=== PATIENT | male | born 1955 | race Caucasian/White ===

== ENCOUNTER 2020-03-26 21:37 | Emergency (ER) | payer BC ==
--- NOTE | 2020-03-26 21:57 | EDM.PDOC ---
ED HPI GENERAL MEDICAL PROBLEM - General Chief Complaint: Fever Stated Complaint: FEVER,POSSIBLE COVID EXPOSURE Time Seen by Provider: 03/26/20 21:42 - History of Present Illness INITIAL COMMENTS - FREE TEXT/NARRATIVE: HISTORY AND PHYSICAL: History of present illness: This is a healthy 65-year-old gentleman with a history significant for coronary disease(status post stent), hypertension, denies diabetes, liver, lung, kidney p erin, presents the ER today secondary to fever earlier this evening to 100.3. Patient reports that he took Tylenol today. 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 Patient reports that he has utilized masks and appropriate PPE but is concerned regarding catching coronavirus. Patient denies any symptomatology. Patient denies any nausea, vomiting, diarrhea, dysuria, frequency, urgency, URI symptoms, rhinorrhea, cough, sore throat, ear pain, abdominal pain, rash, myalgias, weakness. Patient reports he has been tolerating p.o. solids and liquids well. Patient has a chest pain or shortness of breath. Review of systems: As per history of present illness and below otherwise all systems reviewed and negative. Past medical history: As per history of present illness and as reviewed below otherwise noncontributory. Surgical history: As per history of present illness and as reviewed below otherwise noncontributory. Social history: No reported history of drug or alcohol abuse. Family history: As per history of present illness and as reviewed below otherwise noncontributory. Physical exam: Constitutional: Patient is oriented to person, place, and time. Appears well- developed and well-nourished. No distress. HEENT: Moist mucous membranes Head: Normocephalic and atraumatic Eyes: Right eye exhibits no discharge. Left eye exhibits no discharge. No scleral icterus Neck: Normal range of motion. No tracheal deviation present. Cardiovascular: Normal rate and regular rhythm. Pulmonary: Effort normal, no respiratory distress. Abdominal: No distention Musculoskeletal: Normal range of motion Neurologic: Alert and oriented to person, place and time. Skin: [place], warm and dry. Psychiatric: Normal mood and affect. Behavior is normal. Judgment and thought content normal. Nursing note and vital signs have been reviewed TMs clear, oropharynx without erythema or exudates, no lymphadenopathy, lungs clear. Diagnostics: Coronavirus test: Positive Assessment and plan: This is a 65-year-old gentleman who presents to the ER today secondary to concern regarding coronavirus. Patient did have a fever earlier today and has been exposed to clients who were positive for farias virus. Although patient has donned appropriate PPE, he is concerned that he might have contracted coronavirus. Patient is otherwise asymptomatic except for the fever. Patient's coronavirus test is positive here in the ED. Patient currently is asymptomatic other than the fever. Patient's pulse ox is 97% on room air. Patient has been given information regarding need to return the ED if any shortness of breath or any new concerns. Patient has been instructed to self isolate for 2 weeks and should not return back to work until cleared by his family physician. Patient does live with his 12-year-old son however he reports he will be able to wear a mask and isolate from his son at home as best he can. He reports no one else would be able to care for his son. All questions to patient has been answered and he feels comfortable with the current plan. Reassessment at the time of disposition demonstrates that the patient is in no acute distress. The patient has remained stable throughout the entire ED visit and is without objective evidence for acute process requiring urgent intervention or hospitalization. The patient is stable for discharge, counseling is provided as documented above, discussed symptomatic treatment and specific conditions for return. I have spoken with the patient/caregive and discussed todays findings, in addition to providing specific details for the plan of care. Questions are answered and there is agreement with the plan. Definitive disposition and diagnosis as appropriate pending reevaluation and review of above. - Related Data Allergies Allergy/AdvReac Type Severity Reaction Status Date / Time No Known Allergies Allergy Verified 03/26/20 21:42 Home Meds: Home Meds Metoprolol Succinate 25 mg PO BID 02/11/14 [History] Rosuvastatin [Crestor] 5 mg PO DAILY 02/11/14 [History] Lisinopril [Zestril] 10 mg PO DAILY 05/13/14 [History] Non-Formulary Medication [NF Drug] 03/26/20 [History] Past Medical History Cardiovascular History: Reports: High Cholesterol, Hypertension - Infectious Disease History Infectious Disease History: Reports: Chicken Pox, Mumps - Past Surgical History Other Cardiovascular Surgeries/Procedures: 2 stent Social & Family History - Family History Family Medical History: Noncontributory - Caffeine Use Caffeine Use: Reports: None - Recreational Drug Use Recreational Drug Use: No ED ROS GENERAL - Review of Systems Review Of Systems: Comprehensive ROS is negative, except as noted in HPI. ED EXAM, GENERAL - Physical Exam Exam: See Below Course - Vital Signs Last Recorded V/S: Last Vital Signs Temp 97.5 F 03/26/20 21:45 Pulse 66 03/26/20 21:45 Resp 18 03/26/20 21:45 BP 138/95 H 03/26/20 21:45 Pulse Ox 97 03/26/20 21:45 - Orders/Labs/Meds Labs: Laboratory Tests 03/26/20 Range/Units 22:00 COVID-19 (PHU) POSITIVE H (NEGATIVE) Departure - Departure Time of Disposition: 22:41 Disposition: Home, Self-Care 01 Condition: Good Clinical Impression: Coronavirus infection, COVID-19 virus detected - Discharge Information Instructions: COVID-19, COVID-19: How to Protect Yourself and Others - [facility] Referrals: Harlan Arriaza MD [Primary Care Provider] - Forms: ED Department Discharge Additional Instructions: Your coronavirus test today came back positive in the emergency department. You will need to self isolate for the next 2 weeks. You should not return back to work until you are cleared by your family physician. Please return to the ER if you start experiencing any shortness of breath or any new or concerning symptoms. The following information is given to patients seen in the emergency department who are being discharged to home. This information is to outline your options for follow-up care. We provide all patients seen in our emergency department with a follow-up referral. The need for follow-up, as well as the timing and circumstances, are variable depending upon the specifics of your emergency department visit. If you don't have a primary care physician on staff, we will provide you with a referral. We always advise you to contact your personal physician following an emergency department visit to inform them of the circumstance of the visit and for follow-up with them and/or the need for any referrals to a consulting specialist. The emergency department will also refer you to a specialist when appropriate. This referral assures that you have the opportunity for follow-up care with a specialist. All of these measure are taken in an effort to provide you with optimal care, which includes your follow-up. Under all circumstances we always encourage you to contact your private physician who remains a resource for coordinating your care. When calling for follow-up care, please make the office aware that this follow-up is from your recent emergency room visit. If for any reason you are refused follow-up, please contact the [facility] Emergency Department at and asked to speak to the emergency department charge nurse. Sepsis Event Note (ED) - Evaluation Sepsis Screening Result: No Definite Risk - Focused Exam Vital Signs: Vital Signs Temp Pulse Resp BP Pulse Ox 03/26/20 21:45 97.5 F 66 18 138/95 H 97
[2020-03-26 22:57] VITALS: BP 128/83; PULSE 62
== END 2020-03-26 22:54 | disposition home or self-care (01) ==
LOC: MW.ED 21:37
DX: U07.1 COVID-19 (principal); I10 Essential (primary) hypertension; E78.00 Pure hypercholesterolemia, unspecified; Z95.5 Presence of coronary angioplasty implant and graft; Z79.899 Other long term (current) drug therapy
CPT/HCPCS: 99283; U0002

== ENCOUNTER 2021-03-19 03:52 | Emergency (ER) | payer BC ==
[2021-03-19 04:28] LABS: BLOOD UREA NITROGEN,BUN 9 mg/dL (7.0-18.0); CARBON DIOXIDE,CO2 28.5 mmol/L (21.0-32.0); CHLORIDE,CL 103 mmol/L (98-107); GLUCOSE RANDOM 118 mg/dL (74-106); LIPASE 129 U/L (73-393); POTASSIUM,K 3.6 mmol/L (3.5-5.1); SODIUM,NA 141 mmol/L (136-148)
--- NOTE | 2021-03-19 04:30 | EDM.PDOC ---
<Manish Kwon - Last Filed: 03/19/21 04:28> ED HPI GENERAL MEDICAL PROBLEM - General Chief Complaint: Chest Pain Stated Complaint: CHEST PAIN Time Seen by Provider: 03/19/21 04:28 Source of Information: Reports: Patient History Limitations: Reports: No Limitations - History of Present Illness INITIAL COMMENTS - FREE TEXT/NARRATIVE: Patient is a 66-year-old male with past medical history of MIs has 2 stents presents today for chest pain. States that he woke up from sleep with some substernal chest pain radiating to both shoulders. Took aspirin before arriving. States it has made the pain better or worse. Denies any shortness of breath fever chills. Denies any other complaints. bilateral chest and shoulders Pain Score (Numeric/FACES): 6 - Related Data Allergies Allergy/AdvReac Type Severity Reaction Status Date / Time No Known Allergies Allergy Verified 03/19/21 04:11 Home Meds: Home Meds Metoprolol Succinate 25 mg PO BID 02/11/14 [History] Rosuvastatin [Crestor] 5 mg PO DAILY 02/11/14 [History] Lisinopril [Zestril] 10 mg PO DAILY 05/13/14 [History] Non-Formulary Medication [NF Drug] 03/26/20 [History] Past Medical History HEENT History: Reports: None Cardiovascular History: Reports: High Cholesterol, Hypertension, MT Respiratory History: Reports: None Gastrointestinal History: Reports: None Genitourinary History: Reports: None Musculoskeletal History: Reports: None Neurological History: Reports: None Psychiatric History: Reports: None Endocrine/Metabolic History: Reports: None Hematologic History: Reports: None Immunologic History: Reports: None Oncologic (Cancer) History: Reports: None Dermatologic History: Reports: None - Infectious Disease History Infectious Disease History: Reports: Chicken Pox, Mumps - Past Surgical History Head Surgeries/Procedures: Reports: None Other Cardiovascular Surgeries/Procedures: 2 stent Social & Family History - Family History Family Medical History: No Pertinent Family History - Tobacco Use Tobacco Use Status *Q: Never Tobacco User Second Hand Smoke Exposure: No - Caffeine Use Caffeine Use: Reports: None - Recreational Drug Use Recreational Drug Use: No ED ROS GENERAL - Review of Systems Review Of Systems: See Below Constitutional: Reports: No Symptoms HEENT: Reports: No Symptoms Respiratory: Reports: No Symptoms Cardiovascular: Reports: Chest Pain Endocrine: Reports: No Symptoms GI/Abdominal: Reports: No Symptoms : Reports: No Symptoms Musculoskeletal: Reports: No Symptoms Skin: Reports: No Symptoms Neurological: Reports: No Symptoms Psychiatric: Reports: No Symptoms Hematologic/Lymphatic: Reports: No Symptoms Immunologic: Reports: No Symptoms ED EXAM, GENERAL - Physical Exam Exam: See Below Exam Limited By: No Limitations General Appearance: Alert, WD/WN, No Apparent Distress Eye Exam: Bilateral Eye: EOMI, PERRL Respiratory/Chest: No Respiratory Distress, Lungs Clear, Normal Breath Sounds Cardiovascular: Normal Peripheral Pulses, Regular Rate, Rhythm GI/Abdominal: Normal Bowel Sounds, Soft, Non-Tender Back Exam: Normal Inspection Extremities: Normal Inspection, Normal Range of Motion Neurological: Alert, Oriented, Normal Cognition, Normal Gait #1 Interpretation EKG Date: 03/19/21 Time: 04:00 Rhythm: NSR Rate (Beats/Min): 68 ST-T: Normal Departure - Departure Disposition: Against Medical Advice 07 Clinical Impression: Chest pain in adult Instructions: Nonspecific Chest Pain, Adult, [id number], Angina, [id number] Referrals: Harlan Arriaza MD [Primary Care Provider] - Marian Quintanilla MD [Physician] - Forms: ED Department Discharge Additional Instructions: You were evaluated today on an emergent basis. At this time we do recommend that you stay in the hospital to be observed given your symptoms as this could be a symptom of your heart. At this time you chose to leave AGAINST MEDICAL ADVICE. We do recommend that she come back to the emergency department as soon as possible. As discussed I did recommend you follow-up with cardiology in 1 day however you stated that you were going on vacation. Therefore I want you to follow-up with your primary care doctor in 1 day. Please return to ed if you have any chest pain, shortness of breath, passing out. [facility] - [facility] [address] [place] [id number] [facility] [address] [place] [id number] The patient is informed of any results of their evaluation and diagnostic workup and all questions are answered. They are given discharge instructions and return precautions. The patient is stable for discharge. The patient states they understand and agree with the plan and that they will return if their symptoms get worse or if they have any new concerns. The following information is given to patients seen in the emergency department who are being discharged to home. This information is to outline your options for follow-up care. We provide all patients seen in our emergency department with a follow-up referral. The need for follow-up, as well as the timing and circumstances, are variable depending upon the specifics of your emergency department visit. If you don't have a primary care physician on staff, we will provide you with a referral. We always advise you to contact your personal physician following an emergency department visit to inform them of the circumstance of the visit and for follow-up with them and/or the need for any referrals to a consulting specialist. The emergency department will also refer you to a specialist when appropriate. This referral assures that you have the opportunity for follow-up care with a specialist. All of these measure are taken in an effort to provide you with optimal care, which includes your follow-up. Under all circumstances we always encourage you to contact your private physician who remains a resource for coordinating your care. When calling for follow-up care, please make the office aware that this follow-up is from your recent emergency room visit. If for any reason you are refused follow-up, please contact the [facility] Emergency Department at and asked to speak to the emergency department charge nurse. Sepsis Event Note (ED) - Evaluation Sepsis Screening Result: No Definite Risk - Assessment/Plan Plan: Patient is a 66-year-old male with a history of MT. Patient presents today with substernal chest pain rating to her shoulders. We will obtain EKG labs x-ray and reassess patient. <Tay Malik - Last Filed: 03/20/21 20:59> ED HPI GENERAL MEDICAL PROBLEM - History of Present Illness INITIAL COMMENTS - FREE TEXT/NARRATIVE: Patient was signed out to me by Dr. Kwon pending repeat troponin at 7 AM I did reevaluate the patient and noted that he was feeling well. He states that he is on vacation and does not want to stay in the hospital. I did discuss wit h him at this time that given his risk factors we do recommend he stays in the hospital. At this time we did not have any repeat troponin at this time. He was amenable to waiting for the repeat troponin. Laboratory: Repeat troponin was negative. Again on reevaluation patient alert and oriented x4 and given his repeat troponin is negative the patient does not want to stay in the hospital. Ther efore the patient was signed out AGAINST MEDICAL ADVICE. The patient was apprised of the potential risks of leaving the hospital AGAINST MEDICAL ADVICE. They include serious complications, permanent disability, and . At the time of my interview with the patient, the patient was alert, oriented, and capable. I urged the patient to return to the hospital as soon as possible to complete their evaluation and treatment. DISPOSITION: The patient left AGAINST MEDICAL ADVICE CONDITION: Fair PROCEDURES: None FINAL IMPRESSION(S)/DIAGNOSES: 1. Acute chest pain Tay Malik M.D. Course - Vital Signs Last Recorded V/S: Last Vital Signs Temp 37.3 C 03/19/21 08:00 Pulse 70 03/19/21 06:54 Resp 16 03/19/21 08:00 BP 113/68 03/19/21 08:00 Pulse Ox 94 L 03/19/21 08:00 - Orders/Labs/Meds Labs: Laboratory Tests 03/19/21 03/19/21 03/19/21 Range/Units 03:59 03:59 07:00 WBC 8.22 (4.0-11.0) K/uL RBC 4.92 (4.50-5.90) M/uL Hgb 15.4 (13.0-17.0) g/dL Hct 44.0 (38.0-50.0) % MCV 89.4 (80.0-98.0) fL MCH 31.3 (27.0-32.0) pg MCHC 35.0 (31.0-37.0) g/dL RDW Std Deviation 42.1 (28.0-62.0) fl RDW Coeff of Guillermo 13 (11.0-15.0) % Plt Count 182 (150-400) K/uL MPV 8.90 (7.40-12.00) fL Neut % (Auto) 51.8 (48.0-80.0) % Lymph % (Auto) 35.9 (16.0-40.0) % Dorado % (Auto) 9.9 (0.0-15.0) % Eos % (Auto) 2.2 (0.0-7.0) % Baso % (Auto) 0.2 (0.0-1.5) % Neut # (Auto) 4.3 (1.4-5.7) K/uL Lymph # (Auto) 3.0 H (0.6-2.4) K/uL [place] # (Auto) 0.8 (0.0-0.8) K/uL Eos # (Auto) 0.2 (0.0-0.7) K/uL Baso # (Auto) 0.0 (0.0-0.1) K/uL Nucleated RBC % 0.0 /100WBC Nucleated RBCs # 0 K/uL Sodium 141 (136-148) mmol/L Potassium 3.6 (3.5-5.1) mmol/L Chloride 103 (98-107) mmol/L Carbon Dioxide 28.5 (21.0-32.0) mmol/L BUN 9 (7.0-18.0) mg/dL Creatinine 1.1 (0.8-1.3) mg/dL Est Cr Clr Drug Dosing 74.46 mL/min Estimated GFR (MDRD) > 60.0 ml/min Glucose 118 H (74-106) mg/dL Calcium 8.4 L (8.5-10.1) mg/dL Total Bilirubin 0.6 (0.2-1.0) mg/dL AST 17 (15-37) IU/L ALT 22 (14-63) IU/L Alkaline Phosphatase 76 (46-116) U/L Creatine Kinase 85 (26-308) U/L Troponin I < 0.050 < 0.050 (0.000-0.056) ng/mL Total Protein 7.5 (6.4-8.2) g/dL Albumin 3.8 (3.4-5.0) g/dL Globulin 3.7 (2.6-4.0) g/dL Albumin/Globulin Ratio 1.0 (0.9-1.6) Lipase 129 (73-393) U/L Departure - Departure Time of Disposition: 07:56 Condition: Fair
--- NOTE | 2021-03-19 05:54 | CR ---
INDICATION: Chest pain TECHNIQUE: Portable upright AP view of the chest COMPARISON: AP chest radiograph 04/26/2015 FINDINGS: The lungs are clear. There is no sizable pleural effusion or pneumothorax. The cardiomediastinal silhouette is normal. The visualized osseous structures are unremarkable. IMPRESSION: No acute intrathoracic process. Dictated by Anisha Lao MD @ 03/19/2021 5:52:[address] Anisha Lao @ Mar 19 2021 5:52AM
[2021-03-19 06:54] VITALS: PULSE 70
[2021-03-19 08:07] VITALS: BP 113/68
== END 2021-03-19 08:09 | disposition left against medical advice (07) ==
LOC: MW.ED 03:52
DX: R07.2 Precordial pain (principal); I10 Essential (primary) hypertension; E78.00 Pure hypercholesterolemia, unspecified; I25.2 Old myocardial infarction; Z79.899 Other long term (current) drug therapy
CPT/HCPCS: 36415; 71045; 71045-26; 80053; 82550; 83690; 84484; 85025; 93005; 99285-25

== ENCOUNTER 2021-05-25 19:34 | Emergency (ER) | payer BC ==
[2021-05-25] MEDS ORDERED: Aspirin 81 MG Tab.Chew PO ONE (19:43)
--- NOTE | 2021-05-25 19:45 | EDM.PDOC ---
ED HPI GENERAL MEDICAL PROBLEM - General Chief Complaint: Chest Pain Stated Complaint: CHEST PAIN Time Seen by Provider: 05/25/21 19:38 Source of Information: Reports: Patient History Limitations: Reports: No Limitations - History of Present Illness INITIAL COMMENTS - FREE TEXT/NARRATIVE: 66-year-old male past medical 3 hypertension, CAD with 2 stents last cardiac cath roughly 5 years ago presents for chest pain. Patient is poor historian. He states that roughly 30 minutes prior to arrival he began to experience substernal chest pain initially radiating to his left shoulder and now just in his substernal chest. He states he was at rest when this occurred. He denies any associated shortness of breath or cough. He does note that he had Covid a few months ago. He denies any lower extremity swelling or pain. Left Upper Chest Pain Score (Numeric/FACES): 8 - Related Data Allergies Allergy/AdvReac Type Severity Reaction Status Date / Time No Known Allergies Allergy Verified 03/19/21 04:11 Home Meds: Home Meds Metoprolol Succinate 25 mg PO BID 02/11/14 [History] Rosuvastatin [Crestor] 5 mg PO DAILY 02/11/14 [History] Lisinopril [Zestril] 10 mg PO DAILY 05/13/14 [History] Non-Formulary Medication [NF Drug] 03/26/20 [History] Past Medical History HEENT History: Reports: Impaired Vision Cardiovascular History: Reports: High Cholesterol, Hypertension, [place] Respiratory History: Reports: Other (See Below) Other Respiratory History: covid 2020 Gastrointestinal History: Reports: None Genitourinary History: Reports: None Musculoskeletal History: Reports: None Neurological History: Reports: None Psychiatric History: Reports: None Endocrine/Metabolic History: Reports: None Hematologic History: Reports: None Immunologic History: Reports: None Oncologic (Cancer) History: Reports: None Dermatologic History: Reports: None - Infectious Disease History Infectious Disease History: Reports: Chicken Pox, Mumps - Past Surgical History Head Surgeries/Procedures: Reports: None Cardiovascular Surgical History: Reports: Other (See Below) Other Cardiovascular Surgeries/Procedures: 2 stent Social & Family History - Family History Family Medical History: No Pertinent Family History - Caffeine Use Caffeine Use: Reports: None ED ROS GENERAL - Review of Systems Review Of Systems: Comprehensive ROS is negative, except as noted in HPI. ED EXAM, GENERAL - Physical Exam Exam: See Below Exam Limited By: No Limitations General Appearance: Alert, WD/WN, No Apparent Distress Ears: Hearing Grossly Normal Throat/Mouth: Normal Voice, No Airway Compromise Head: Atraumatic, Normocephalic Respiratory/Chest: No Respiratory Distress, Lungs Clear, Normal Breath Sounds, No Accessory Muscle Use Cardiovascular: Normal Peripheral Pulses, Regular Rate, Rhythm, No Edema Extremities: Normal Inspection Neurological: Alert, Normal Cognition Psychiatric: Normal Affect, Normal Mood Skin Exam: Warm, Dry, Intact, Normal Color #1 Interpretation EKG Date: 05/25/21 Time: 19:37 Rhythm: NSR Rate (Beats/Min): 62 Silver: Normal P-Wave: Present QRS: Normal ST-T: Normal QT: Normal ME/PQ Interval: 220 EKG Interpretation Comments: no acute ischemic changes Course - Vital Signs Last Recorded V/S: Last Vital Signs Temp 98.2 F 05/25/21 19:38 Pulse 63 05/25/21 22:16 Resp 17 05/25/21 22:16 BP 105/62 05/25/21 22:16 Pulse Ox 95 05/25/21 22:16 - Orders/Labs/Meds Orders: Active Orders 24 hr Category Date Time Status Nitroglycerin [Nitrostat] Med 05/25/21 19:43 Active 0.4 mg SL Q5M PRN Saline Lock Insert [OM.PC] Stat Oth 05/25/21 19:43 Ordered Medication Orders Nitroglycerin (Nitroglycerin 0.4 Mg Tab.Sl) 0.4 mg SL Q5M PRN PRN Reason: Chest Pain Last Admin: 05/25/21 20:05 Dose: 0.4 mg Documented by: Admin: 05/25/21 19:56 Dose: 0.4 mg Documented by: [place] Labs: Laboratory Tests 05/25/21 05/25/21 05/25/21 Range/Units 19:45 19:45 19:45 WBC 9.35 (4.0-11.0) K/uL RBC 4.74 (4.50-5.90) M/uL Hgb 14.7 (13.0-17.0) g/dL Hct 42.0 (38.0-50.0) % MCV 88.6 (80.0-98.0) fL MCH 31.0 (27.0-32.0) pg MCHC 35.0 (31.0-37.0) g/dL RDW Std Deviation 43.0 (28.0-62.0) fl RDW Coeff of Guillermo 13 (11.0-15.0) % Plt Count 189 (150-400) K/uL MPV 8.80 (7.40-12.00) fL Neut % (Auto) 54.2 (48.0-80.0) % Lymph % (Auto) 33.6 (16.0-40.0) % [place] % (Auto) 10.4 (0.0-15.0) % Eos % (Auto) 1.6 (0.0-7.0) % Baso % (Auto) 0.2 (0.0-1.5) % Neut # (Auto) 5.1 (1.4-5.7) K/uL Lymph # (Auto) 3.1 H (0.6-2.4) K/uL [place] # (Auto) 1.0 H (0.0-0.8) K/uL Eos # (Auto) 0.2 (0.0-0.7) K/uL Baso # (Auto) 0.0 (0.0-0.1) K/uL Nucleated RBC % 0.0 /100WBC Nucleated RBCs # 0 K/uL Sodium 137 (136-148) mmol/L Potassium 3.7 (3.5-5.1) mmol/L Chloride 100 (98-107) mmol/L Carbon Dioxide 27.2 (21.0-32.0) mmol/L BUN 15 (7.0-18.0) mg/dL Creatinine 1.0 (0.8-1.3) mg/dL Est Cr Clr Drug Dosing TNP Estimated GFR (MDRD) > 60.0 ml/min Glucose 126 H (74-106) mg/dL Calcium 8.2 L (8.5-10.1) mg/dL Magnesium 2.3 (1.8-2.4) mg/dL Total Bilirubin 0.6 (0.2-1.0) mg/dL AST 22 (15-37) IU/L ALT 16 (14-63) IU/L Alkaline Phosphatase 73 (46-116) U/L Troponin I < 0.050 (0.000-0.056) ng/mL B-Natriuretic Peptide 28 (<100) PG/ML Total Protein 7.7 (6.4-8.2) g/dL Albumin 3.7 (3.4-5.0) g/dL Globulin 4.0 (2.6-4.0) g/dL Albumin/Globulin Ratio 0.9 (0.9-1.6) 05/25/21 Range/Units 22:47 WBC (4.0-11.0) K/uL RBC (4.50-5.90) M/uL Hgb (13.0-17.0) g/dL Hct (38.0-50.0) % MCV (80.0-98.0) fL MCH (27.0-32.0) pg MCHC (31.0-37.0) g/dL RDW Std Deviation (28.0-62.0) fl RDW Coeff of Guillermo (11.0-15.0) % Plt Count (150-400) K/uL MPV (7.40-12.00) fL Neut % (Auto) (48.0-80.0) % Lymph % (Auto) (16.0-40.0) % [place] % (Auto) (0.0-15.0) % Eos % (Auto) (0.0-7.0) % Baso % (Auto) (0.0-1.5) % Neut # (Auto) (1.4-5.7) K/uL Lymph # (Auto) (0.6-2.4) K/uL [place] # (Auto) (0.0-0.8) K/uL Eos # (Auto) (0.0-0.7) K/uL Baso # (Auto) (0.0-0.1) K/uL Nucleated RBC % /100WBC Nucleated RBCs # K/uL Sodium (136-148) mmol/L Potassium (3.5-5.1) mmol/L Chloride (98-107) mmol/L Carbon Dioxide (21.0-32.0) mmol/L BUN (7.0-18.0) mg/dL Creatinine (0.8-1.3) mg/dL Est Cr Clr Drug Dosing Estimated GFR (MDRD) ml/min Glucose (74-106) mg/dL Calcium (8.5-10.1) mg/dL Magnesium (1.8-2.4) mg/dL Total Bilirubin (0.2-1.0) mg/dL AST (15-37) IU/L ALT (14-63) IU/L Alkaline Phosphatase (46-116) U/L Troponin I < 0.050 (0.000-0.056) ng/mL B-Natriuretic Peptide (<100) PG/ML Total Protein (6.4-8.2) g/dL Albumin (3.4-5.0) g/dL Globulin (2.6-4.0) g/dL Albumin/Globulin Ratio (0.9-1.6) Meds: Medications Generic Name Dose Route Start Last Admin Trade Name Freq PRN Reason Stop Dose Admin Nitroglycerin 0.4 mg 05/25/21 19:43 05/25/21 20:05 Nitroglycerin 0.4 Mg Tab.Sl SL 0.4 mg Q5M PRN Administration Chest Pain Discontinued Medications Generic Name Dose Route Start Last Admin Trade Name Freq PRN Reason Stop Dose Admin Aspirin 324 mg 05/25/21 19:43 05/25/21 19:56 Aspirin 81 Mg Tab.Chew PO 05/25/21 19:44 324 mg ONETIME ONE Administration Ondansetron HCl 4 mg 05/25/21 20:09 05/25/21 20:12 Ondansetron 4 Mg/2 Ml Sdv IVPUSH 05/25/21 20:10 4 mg ONETIME ONE Administration Ondansetron HCl Confirm 05/25/21 20:10 05/25/21 20:12 Ondansetron 4 Mg/2 Ml Sdv Administered 05/25/21 20:11 Not Given Dose 4 mg .ROUTE .STK-MED ONE - Re-Assessments/Exams Free Text/Narrative Re-Assessment/Exam: 05/25/21 20:35 Patient notes resolution of pain. Will get 3-hour repeat troponin. Told patient that I recommend that he stay in the hospital for observation for cardiac evaluation. He is uncertain if he is willing to stay but he is willing to stay for the 3-hour repeat troponin. 05/25/21 23:39 Patient's repeat troponin is negative. I did offer observation admission and recommend that this. 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 Departure - Departure Time of Disposition: 23:40 Disposition: Home, Self-Care 01 Condition: Good Clinical Impression: Chest pain Qualifiers: Chest pain type: unspecified Qualified Code(s): R07.9 - Chest pain, unspecified - Discharge Information Instructions: Nonspecific Chest Pain, Adult Forms: ED Department Discharge Additional Instructions: Please follow-up with your wallboard worker as soon as you can. If you are for return of chest pain you need to come back to the emergency department immediately. The following information is given to patients seen in the emergency department who are being discharged to home. This information is to outline your options for follow-up care. We provide all patients seen in our emergency department with a follow-up referral. The need for follow-up, as well as the timing and circumstances, are variable depending upon the specifics of your emergency department visit. If you don't have a primary care physician on staff, we will provide you with a referral. We always advise you to contact your personal physician following an emergency department visit to inform them of the circumstance of the visit and for follow-up with them and/or the need for any referrals to a consulting specialist. The emergency department will also refer you to a specialist when appropriate. This referral assures that you have the opportunity for follow-up care with a specialist. All of these measure are taken in an effort to provide you with optimal care, which includes your follow-up. Under all circumstances we always encourage you to contact your private physician who remains a resource for coordinating your care. When calling for follow-up care, please make the office aware that this follow-up is from your recent emergency room visit. If for any reason you are refused follow-up, please contact the Emergency Department at and asked to speak to the emergency department charge nurse. Please follow up with your primary care physician. If you do not have a primary care physician, see below: [facility] [address] [place] [id number] [facility] [address] [place] [id number] [facility] [address] [place] [id number] Sepsis Event Note (ED) - Evaluation Sepsis Screening Result: No Definite Risk - Focused Exam Vital Signs: Vital Signs Temp Pulse Resp BP BP Pulse Ox 05/25/21 22:16 63 17 105/62 95 05/25/21 21:40 68 19 109/67 96 05/25/21 20:07 18 105/62 93 L 05/25/21 20:05 109/67 05/25/21 20:03 89 18 109/67 94 L 05/25/21 19:56 125/75 05/25/21 19:38 98.2 F 67 18 157/82 H 97 - My Orders Last 24 Hours: My Active Orders 05/25/21 19:43 Nitroglycerin [Nitrostat] 0.4 mg SL Q5M PRN Saline Lock Insert [OM.PC] Stat - Assessment/Plan Last 24 Hours: My Active Orders 05/25/21 19:43 Nitroglycerin [Nitrostat] 0.4 mg SL Q5M PRN Saline Lock Insert [OM.PC] Stat
[2021-05-25] MEDS: Nitroglycerin 0.4 MG Tab.SL SL PRN ×2 (19:56→20:05)
[2021-05-25] MEDS ORDERED: Ondansetron 4 MG/2 ML SDV IVPUSH ONE (20:09)
[2021-05-25] MEDS ORDERED: Ondansetron 4 MG/2 ML SDV ONE (20:10)
[2021-05-25 20:17] LABS: BLOOD UREA NITROGEN,BUN 15 mg/dL (7.0-18.0); CARBON DIOXIDE,CO2 27.2 mmol/L (21.0-32.0); CHLORIDE,CL 100 mmol/L (98-107); GLUCOSE RANDOM 126 mg/dL (74-106); POTASSIUM,K 3.7 mmol/L (3.5-5.1); SODIUM,NA 137 mmol/L (136-148)
--- NOTE | 2021-05-25 20:24 | CR ---
INDICATION: Chest pain. COMPARISON: 03/19/2021 FINDINGS: An erect single view of the chest was obtained at 19 48 hours. The lungs remain clear despite shallow inspiration. No focal or diffuse infiltrates are present. The heart remains normal in size. The mediastinum is normal in appearance. The osseous structures are normal in appearance for the patient`s age. IMPRESSION: Shallow inspiration. Otherwise normal chest single view. Dictated by Chris Davison MD @ 05/25/2021 8:23:15 PM (Electronically Signed)
[2021-05-25 23:49] VITALS: BP 117/66; PULSE 60
== END 2021-05-25 23:50 | disposition home or self-care (01) ==
LOC: MW.ED 19:34
DX: R07.2 Precordial pain (principal); E78.00 Pure hypercholesterolemia, unspecified; I10 Essential (primary) hypertension; I25.2 Old myocardial infarction; Z86.16 Personal history of COVID-19; Z79.899 Other long term (current) drug therapy
CPT/HCPCS: 36415; 71045; 80053; 83735; 83880; 84484; 85025; 93005; 96374; 99285; A9270; J2405

== ENCOUNTER 2024-03-03 22:40 | Emergency (ER) | payer BC ==
[2024-03-03 23:03] LABS: BASOPHILS ABSOLUTE AUTO 0.06 K/uL (0.00-0.20); BASOPHILS PERCENT AUTO 0.6 % (0.0-1.0); EOSINOPHILS ABSOLUTE AUTO 0.32 K/uL (0.00-0.45); HEMATOCRIT 42.8 % (42.0-52.0); IMMATURE GRAN ABSOLUTE AUTO 0.02 K/uL (0.00-0.05); IMMATURE GRAN PERCENT AUTO 0.2 % (0.0-0.4); LYMPHOCYTES ABSOLUTE AUTO 3.45 K/uL (1.00-4.80); LYMPHOCYTES PERCENT AUTO 32.8 % (24.0-44.0); MEAN CORPUSCULAR HEMOGLOBIN 31.4 pg (28.0-32.0); MEAN CORPUSCULAR VOLUME 89.5 fL (83.0-99.0); MEAN PLATELET VOLUME 8.8 fL (9.4-12.4); MONOCYTES ABSOLUTE AUTO 1.09 K/uL (0.00-0.80); MONOCYTES PERCENT AUTO 10.4 % (0.0-8.0); NEUTROPHILS ABSOLUTE AUTO 5.58 K/uL (1.80-7.70); PLATELET COUNT,PLT 188 K/uL (150-400); RED BLOOD CELL COUNT 4.78 M/uL (4.52-5.90); WHITE BLOOD CELL COUNT,WBC 10.52 K/uL (3.9-11.3)
[2024-03-03] MEDS: Aspirin 81 MG Tab.Chew PO ONE (23:07)
[2024-03-03 23:16] LABS: CALCIUM 8.7 mg/dL (8.5-10.1); EST CRCL DRUG DOSING (CG) 76.35 mL/min
[2024-03-04 01:44] VITALS: BP 125/75; PULSE 58
== END 2024-03-04 01:42 | disposition home or self-care (01) ==
LOC: MW.ED 22:40
DX: R07.81 Pleurodynia (principal); I10 Essential (primary) hypertension; I25.2 Old myocardial infarction; Z95.5 Presence of coronary angioplasty implant and graft; Z79.899 Other long term (current) drug therapy; Z88.1 Allergy status to other antibiotic agents
CPT/HCPCS: 36415; 71045; 80048; 84484; 85025; 93005; 99285; A9270; 93010; 99284